=== PATIENT | male | born 1960 | race Two or more races ===

== ENCOUNTER 2022-06-10 09:52 | Emergency (ER) | payer OTHER ==
[~2022-06-10] VITALS: Ht 177.8 cm; Wt 88.5 kg
[2022-06-10 10:04] VITALS: BP 153/91
--- NOTE | 2022-06-10 10:10 | NUR ---
[id number] C/O HEAD PAIN, NOTED FOREHEAD HEMATOMA S/P FALLING OFF APPROX 9FT HIGH SHELVINGS AT WORK. 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
--- NOTE | 2022-06-10 10:11 | NUR ---
PATIENT WAS BIB [facility].
--- NOTE | 2022-06-10 10:58 | NUR ---
SENT TRAUMA TRANSFER SHEET TO [facility] DANIAL SIDDIQI AWAITING ER TO GIVE US A CALL BACK
--- NOTE | 2022-06-10 11:00 | NUR ---
DR. ROMERO CALLED [facility] REGARDING PT TRAUMA TRANSFER AWAITING A CALL BACK FOR ACCEPTANCE INFO
[2022-06-10] MEDS ORDERED: MORPHINE SULFATE INJ 2 MG/ML DISP.SYRIN IM ONE (11:30)
--- NOTE | 2022-06-10 11:36 | NUR ---
COVID TEST COLLCECTED AND SENT
[2022-06-10] MEDS ORDERED: MORPHINE SULFATE INJ 4 MG/ML DISP.SYRIN ONE (11:37)
--- NOTE | 2022-06-10 11:40 | NUR ---
Koffi león in ED - 06/10/22 at 1159 by RAJ CALLED [facility] AND WAS NOTIFIED THAT NO ALS ARE AVAILABLE TO TAKE PT
--- NOTE | 2022-06-10 11:42 | NUR ---
Koffi león in [facility] - 06/10/22 at 1143 by [facility] AT BEDSIDE
--- NOTE | 2022-06-10 11:44 | NUR ---
PATIENT SIGNED CONSENT TO BE TRANSFERRED TO FACILITY WITH HIGHER LEVEL OF CARE
--- NOTE | 2022-06-10 11:50 | NUR ---
Koffi león in ED - 06/10/22 at 1158 by MFRAUSTO PT GOING TO [facility] UNDER TRAUMA DR: DR VILLANUEVA ED DR: DR REEVES NUMBER FOR REPORT: [phone]
--- NOTE | 2022-06-10 11:50 | NUR ---
PT GOING TO [facility] UNDER TRAUMA DR: DR VILLANUEVA ED DR: DR REEVES NUMBER FOR REPORT: [phone]
--- NOTE | 2022-06-10 11:51 | NUR ---
CALLED [facility] AND WAS NOTIFIED THAT NO ALS IS AVAILABLE FOR WET WHEELER AT THIS TIME
--- NOTE | 2022-06-10 11:52 | NUR ---
CALLED PENN[facility] BUSTAMANTE FOR [facility] AIDE AND WAS NOTIFIED THAT THEU ARE NOT ABLE TO TAKE THE PT AT THIS TIME
--- NOTE | 2022-06-10 11:58 | NUR ---
REPORT GIVEN TO BRANDIE FOR ELSIE
--- NOTE | 2022-06-10 12:02 | NUR ---
CALLED [facility] ABOUT ALS TRANSPORT AND WAS NOTIFIED THAT THEY ARE NOT ABLE TO TAKE THE PT
--- NOTE | 2022-06-10 12:03 | NUR ---
CALLED [facility] AND WAS NOTIFIED THAT THEY ARE NOT ABLE TO TAKE THE PT
--- NOTE | 2022-06-10 12:10 | NUR ---
CALLED 911 FOR EMERGENCY TRANSPORT TO [facility] ED. WAS NOTIFIED THAT [facility] WILL COME FOR TRANSPORT OF PT
--- NOTE | 2022-06-10 12:37 | NUR ---
911 TRANSPORTATION TOOK PT TO [facility] IN STABLE CONDITION
--- NOTE | 2022-06-10 12:49 | NUR ---
JERILYN CALLED FOR PHOTOENGRAVING ETCHER OF DISK
== END 2022-06-10 13:12 | disposition short-term general hospital (02) ==
LOC: ER 10:02
DX: S12.190A Other displaced fracture of second cervical vertebra, initial encounter for closed fracture (principal); Z20.822 Contact with and (suspected) exposure to COVID-19; W18.30XA Fall on same level, unspecified, initial encounter; Y93.01 Activity, walking, marching and hiking; Y92.89 Other specified places as the place of occurrence of the external cause; Y99.8 Other external cause status
CPT/HCPCS: 99285; 72125; 87426; 96372; 70450; J2270; C9803